=== PATIENT | female | born 1940 | race Caucasian/White ===

== ENCOUNTER 2017-01-11 22:46 | Emergency (ER) | payer MEDICARE, BC ==
[2017-01-12] MEDS ORDERED: PREDNISONE 20 MG TABLET PO ONE (03:01)
--- NOTE | 2017-01-12 03:03 | ER Document Report ---
ED General - General Chief Complaint: Back Pain Stated Complaint: BACK PAIN Time seen by provider: 02:58 Mode of Arrival: Ambulatory Information source: Patient Notes: 76-year-old female with 5 day history of pain and low back after lifting a toddler. She reports symptoms first began suddenly and felt like cramping pain in the lower back bilaterally over the course of the next 2 days localized to the left SI area. She reports straightening her legs produces pain in that area but does not produce any radicular type symptoms. She denies fever, chills , nausea, vomiting, cough, shortness breath, chest pain, abdominal pain, dysuria , urinary fecal incontinence, or numbness weakness to any extremity. Patient reports the low back pain does not radiate down her legs or to her abdomen Physical Exam: General: Alert, appears well. HEENT: Normocephalic. Atraumatic. PERRLA. Extraocular movements intact. Oropharynx clear. Neck: Supple. Non-tender. Respiratory: No respiratory distress. Clear and equal breath sounds bilaterally. Cardiovascular: Regular rate and rhythm. Abdominal: Normal Inspection. Soft, non-tender. No distension. Normal Bowel Sounds. Ostomy site appears healthy Back: Tender to palpation in the upper left SI area. This localizes it reproduces patient's pain. No lesions noted this area. Remainder back is nontender to palpation. Extremities all warm to plus pulses of cyanosis no edema straight leg raise bilaterally produces low back pain but no radicular symptoms. Neurological: Speech clear mentation normal project coordinator strength 5 out of 5 equal both upper extremities motor function 5 out of 5 equal both lower extremities Psychological: Normal affect. Normal Mood. Skin: Warm. Dry. Normal color. TRAVEL OUTSIDE OF THE [place] IN LAST 30 DAYS: No - Related Data Allergies/Adverse Reactions: latex [Latex] Allergy (Mild, Verified 08/05/13 15:41) ITCHY RASH diphenhydramine HCl [From Benadryl] Adverse Reaction (Verified 08/05/13 15:41) DECREASES HEART RATE Past Medical History - Social History Smoking Status: Current Every Day Smoker Chew tobacco use (# tins/day): No Frequency of alcohol use: None Drug Abuse: None Family History: Hypertension Patient has suicidal ideation: No Patient has homicidal ideation: No - Past Medical History Cardiac Medical History: Reports: Hx Atrial Fibrillation, Hx Hypertension Denies: Hx Heart Attack Pulmonary Medical History: Denies: Hx Asthma, Hx Tuberculosis Neurological Medical History: Denies: Hx Cerebrovascular Accident, Hx Seizures Renal/ Medical History: Denies: Hx Peritoneal Dialysis GI Medical History: Denies: Hx Hepatitis, Hx Hiatal Hernia, Hx Ulcer Infectious Medical History: Denies: Hx Hepatitis Past Surgical History: Reports: Hx Bowel Surgery - bowel resection, Hx Cholecystectomy. Denies: Hx Hysterectomy, Hx Mastectomy, Hx Open Heart Surgery , Hx Pacemaker - Immunizations Hx Diphtheria, Pertussis, Tetanus Vaccination: Yes Hx Pneumococcal Vaccination: 08/06/13 Review of Systems - Review of Systems Constitutional: denies: Chills, Fever EENT: denies: Ear pain, Throat pain Cardiovascular: denies: Chest pain, Dyspnea, Syncope Respiratory: denies: Cough, Short of breath Gastrointestinal: denies: Abdominal pain, Diarrhea, Nausea, Vomiting Genitourinary: denies: Burning, Dysuria Female Genitourinary: denies: Musculoskeletal: See HPI Skin: denies: Rash Hematologic/Lymphatic: denies: Swollen glands Neurological/Psychological: denies: Weakness, Numbness Physical Exam - Vital signs Vitals: Temp Pulse Resp BP Pulse Ox 97.9 F 71 20 156/76 H 95 01/11/17 23:04 01/11/17 23:04 01/11/17 23:04 01/11/17 23:04 01/11/17 23:04 Course - Re-evaluation Re-evalutation: 01/12/17 03:00 Patient presentation consistent with mechanical low back pain. We placed a steroid Dosepak and she reports dose pills that she is oriented been taking have not helped. She'll follow with her physician Dr. Beckham's next week for recheck or return to emergency department for further problems - Vital Signs Vital signs: Temp Pulse Resp BP Pulse Ox 97.9 F 71 20 156/76 H 95 01/11/17 23:04 01/11/17 23:04 01/11/17 23:04 01/11/17 23:04 01/11/17 23:04 Discharge - Discharge Clinical Impression: Back pain Qualifiers: Back pain location: low back pain Chronicity: acute Back pain laterality: left Sciatica presence: without sciatica Qualified Code(s): M54.5 - Low back pain Condition: Stable Disposition: HOME, SELF-CARE Additional Instructions: Low Back Pain Three out of every four people will have an episode of disabling back pain during their lifetime. Most commonly the pain is due to straining of the muscles and ligaments in the low back. Usual treatment includes: (1) Rest on a firm surface. Avoid lying on your stomach. (2) Ice pack the painful area. After a few days, gentle heat may be used intermittently to relax the area, or ice packs can be continued. (3) Medication may be needed -- muscle relaxers and antiinflammatory medicines are commonly used. (4) As the back improves, exercises are prescribed to strengthen the back and abdominal muscles. Your doctor will advise you on the proper care for your back at each stage in your recovery. You may be better in a few days -- or healing may take several weeks. If new symptoms of a "herniated disc" (radiation of pain, numbness, or tingling down the back of the leg or weakness in the leg) occur, you should be re-examined. Further testing may be necessary. Follow-up with your physician in [place] Dr. cotter next week for recheck Prescriptions: Methylprednisolone [Medrol Dosepack (4 mg/Tab) 21 Tab/Dosepak] 4 mg PO ASDIR PRN #21 tab.ds.pk PRN Reason:
[2017-01-12 03:33] VITALS: BP 122/88
== END 2017-01-12 03:31 | disposition home or self-care (01) ==
LOC: ER 22:46
DX: M54.5 Low back pain (principal); F17.200 Nicotine dependence, unspecified, uncomplicated; I48.91 Unspecified atrial fibrillation; I10 Essential (primary) hypertension; Z91.040 Latex allergy status; Z90.49 Acquired absence of other specified parts of digestive tract
CPT/HCPCS: 99283; A9270; J7512

== ENCOUNTER 2017-04-14 15:50 | Emergency (ER) | payer MEDICARE, BC ==
[2017-04-14 15:54] VITALS: BP 126/66
--- NOTE | 2017-04-14 16:23 | ER Document Report ---
ED Oral Problem - General Chief Complaint: Toothache Stated Complaint: TOOTHACHE Time Seen by Provider: 04/14/17 16:15 Information source: Patient TRAVEL OUTSIDE OF THE [place] IN LAST 30 DAYS: No - HPI Patient complains to provider of: Jaw pain Onset: Last week Pain Level: 2 Associated symptoms: Dental decay, Toothache - Related Data Allergies/Adverse Reactions: No Known Allergies Allergy (Verified 04/14/17 15:53) Past Medical History - General Information source: Patient - Social History Smoking Status: Never Smoker Cigarette use (# per day): No Chew tobacco use (# tins/day): No Smoking Education Provided: No Family History: Hypertension Patient has suicidal ideation: No Patient has homicidal ideation: No - Past Medical History Cardiac Medical History: Reports: Hx Atrial Fibrillation, Hx Hypertension Denies: Hx Heart Attack Pulmonary Medical History: Denies: Hx Asthma, Hx Tuberculosis Neurological Medical History: Denies: Hx Cerebrovascular Accident, Hx Seizures Renal/ Medical History: Denies: Hx Peritoneal Dialysis GI Medical History: Denies: Hx Hepatitis, Hx Hiatal Hernia, Hx Ulcer Infectious Medical History: Denies: Hx Hepatitis Past Surgical History: Reports: Hx Bowel Surgery - bowel resection, Hx Cholecystectomy. Denies: Hx Hysterectomy, Hx Mastectomy, Hx Open Heart Surgery , Hx Pacemaker - Immunizations Hx Diphtheria, Pertussis, Tetanus Vaccination: Yes Hx Pneumococcal Vaccination: 08/06/13 Review of Systems - Review of Systems Constitutional: No symptoms reported EENT: No symptoms reported Cardiovascular: No symptoms reported Respiratory: No symptoms reported Gastrointestinal: No symptoms reported Genitourinary: No symptoms reported Female Genitourinary: No symptoms reported Musculoskeletal: No symptoms reported Skin: No symptoms reported Hematologic/Lymphatic: No symptoms reported Neurological/Psychological: No symptoms reported Physical Exam - Vital signs Vitals: Temp Pulse Resp BP Pulse Ox 98.1 F 70 18 126/66 H 96 04/14/17 15:53 04/14/17 15:53 04/14/17 15:53 04/14/17 15:53 04/14/17 15:53 Interpretation: Normal - General General appearance: Appears well, Alert - HEENT Head: Normocephalic, Atraumatic Eyes: Normal Pupils: PERRL Teeth diagram: 1 - severe decay Pharynx: Normal - Respiratory Respiratory status: No respiratory distress Chest status: Nontender Breath sounds: Normal Chest palpation: Normal - Cardiovascular Rhythm: Regular Heart sounds: Normal auscultation Murmur: No - Abdominal Inspection: Normal Distension: No distension Bowel sounds: Normal Tenderness: Nontender Organomegaly: No organomegaly - Back Back: Normal, Nontender - Extremities General upper extremity: Normal inspection, Nontender, Normal color, Normal ROM , Normal temperature General lower extremity: Normal inspection, Nontender, Normal color, Normal ROM , Normal temperature, Normal weight bearing. No: Alex's sign - Neurological Neuro grossly intact: Yes Cognition: Normal Orientation: AAOx4 Sterling Coma Scale Eye Opening: Spontaneous Sterling Coma Scale Verbal: Oriented Maria Luisa Coma Scale Motor: Obeys Commands Maria Luisa Coma Scale Total: 15 Speech: Normal Motor strength normal: LUE, RUE, LLE, RLE Sensory: Normal - Psychological Associated symptoms: Normal affect, Normal mood - Skin Skin Temperature: Warm Skin Moisture: Dry Skin Color: Normal Course - Re-evaluation Re-evalutation: 04/14/17 16:20 7-year-old female presents to the emergency room today stating that she had discomfort and pain at the #16 tube medially she does have decayed to the area no abscess identified patient does have dentist and will be following up Sunday in the office. - Vital Signs Vital signs: Temp Pulse Resp BP Pulse Ox 98.1 F 70 18 126/66 H 96 04/14/17 15:53 04/14/17 15:53 04/14/17 15:53 04/14/17 15:53 04/14/17 15:53 Discharge - Discharge Clinical Impression: Toothache Disposition: HOME, SELF-CARE Instructions: Oral Narcotic Medication ([facility]), Toothache ([facility]) Additional Instructions: Toothache Your pain is due to dental decay. The tooth must be repaired in order for you to feel better. You will, therefore, be referred to a dentist. Severe swelling or drainage around a tooth usually means a deep dental abscess. This also requires evaluation and treatment by the dentist, but antibiotics may be prescribed while awaiting dental treatment. You should be rechecked immediately if you develop major swelling of the face, increasing pain, a lump in the jaw or gums, headache, or fever. Prescriptions: Naproxen Sodium [Naproxen Sodium ER] 500 mg PO Q12 PRN #20 tablet.sa PRN Reason: Penicillin V Potassium [Penicillin Vk 500 mg Tablet] 500 mg PO BID #20 tablet Tramadol HCl [Ultram] 50 mg PO QID PRN #20 tablet PRN Reason:
== END 2017-04-14 16:48 | disposition home or self-care (01) ==
LOC: ER 15:50
DX: K08.9 Disorder of teeth and supporting structures, unspecified (principal); R68.84 Jaw pain; I48.91 Unspecified atrial fibrillation; I10 Essential (primary) hypertension; Z90.49 Acquired absence of other specified parts of digestive tract
CPT/HCPCS: 99282

== ENCOUNTER → 2017-11-20 | Outpatient (CLI) | payer MEDICARE, BC ==
[2017-11-20 13:08] LABS: ABSOLUTE EOSINOPHILS # (AUTO) 0.2 10^3/uL (0.0-0.6); ABSOLUTE LYMPHOCYTES (AUTO) 1.6 10^3/uL (0.5-4.7); ABSOLUTE MONOCYTES (AUTO) 0.3 10^3/uL (0.1-1.4); ABSOLUTE NEUT (AUTO) 2.4 10^3/uL (1.7-8.2); BASOPHILS % (AUTO) 0.7 % (0-2); EOSINOPHILS % (AUTO) 5.4 % (0-6); HEMATOCRIT 36.8 % (36.0-47.0); HEMOGLOBIN 12.5 g/dL (12.0-15.5); MEAN CORPUSCULAR HEMOGLOBIN 32.5 pg (27.0-33.4); MEAN CORPUSCULAR HGB CONC 34.1 g/dL (32.0-36.0); MEAN CORPUSCULAR VOLUME 96 fl (80-97); MONOCYTES % (AUTO) 6.4 % (3-13); PLATELET COUNT 114 10^3/uL (150-450); RED BLOOD COUNT 3.85 10^6/uL (3.72-5.28); RED CELL DISTRIBUTION WIDTH 13.9 % (11.5-14.0); SEGMENTED NEUTROPHILS % (AUTO) 52.5 % (42-78); TOTAL CELLS COUNTED % (AUTO) 100 %; WHITE BLOOD COUNT 4.5 10^3/uL (4.0-10.5)
[2017-11-20 13:31] LABS: ALANINE AMINOTRANSFERASE 27 U/L (9-52); ALBUMIN 3.7 g/dL (3.5-5.0); ALKALINE PHOSPHATASE 89 U/L (38-126); ANION GAP 10 (5-19); ASPARTATE AMINO TRANSFERASE 24 U/L (14-36); BILIRUBIN,DIRECT 0.2 mg/dL (0.0-0.4); BILIRUBIN,TOTAL 0.6 mg/dL (0.2-1.3); BLOOD UREA NITROGEN 20 mg/dL (7-20); CALCIUM 9.5 mg/dL (8.4-10.2); CARBON DIOXIDE 26 mmol/L (22-30); CHLORIDE 106 mmol/L (98-107); GLUCOSE 86 mg/dL (75-110); POTASSIUM 4.1 mmol/L (3.6-5.0); SODIUM 141.5 mmol/L (137-145)
== END ==
LOC: OD 12:22
PROVIDERS: ATTEND Physician Assistant
DX: Z11.2 Encounter for screening for other bacterial diseases (principal); I10 Essential (primary) hypertension
CPT/HCPCS: 36415; 80053; 85025; 87070

== ENCOUNTER → 2018-02-19 | Outpatient (CLI) | payer MEDICARE, BC ==
[2018-02-19 14:40] LABS: HEMATOCRIT 25.7 % (36.0-47.0); HEMOGLOBIN 9.1 g/dL (12.0-15.5); MEAN CORPUSCULAR HEMOGLOBIN 33.4 pg (27.0-33.4); MEAN CORPUSCULAR HGB CONC 35.4 g/dL (32.0-36.0); MEAN CORPUSCULAR VOLUME 94 fl (80-97); PLATELET COUNT 139 10^3/uL (150-450); RED BLOOD COUNT 2.73 10^6/uL (3.72-5.28); RED CELL DISTRIBUTION WIDTH 14.5 % (11.5-14.0)
[2018-02-19 14:51] LABS: ANION GAP 9 (5-19); BLOOD UREA NITROGEN 41 mg/dL (7-20); CALCIUM 9.3 mg/dL (8.4-10.2); CARBON DIOXIDE 21 mmol/L (22-30); CHLORIDE 111 mmol/L (98-107); GLUCOSE 94 mg/dL (75-110); IRON(TIBC) 113.7 ug/dL (37-170); POTASSIUM 4.2 mmol/L (3.6-5.0); SODIUM 141.4 mmol/L (137-145)
[2018-02-19 15:15] LABS: APPEARANCE,URINE CLEAR; BILIRUBIN,URINE NEGATIVE (NEGATIVE); COLOR,URINE YELLOW; GLUCOSE, URINE NEGATIVE (NEGATIVE); KETONES,URINE NEGATIVE (NEGATIVE); LEUKOCYTE ESTERASE,URINE NEGATIVE (NEGATIVE); NITRITE,URINE NEGATIVE (NEGATIVE); PROTEIN,URINE NEGATIVE (NEGATIVE); URINE SPECIFIC GRAVITY 1.018; UROBILINOGEN,URINE NEGATIVE mg/dL (<2.0)
== END ==
LOC: OD 13:23
PROVIDERS: ATTEND Internal Medicine Nephrology
DX: N18.3 Chronic kidney disease, stage 3 (moderate) (principal); D64.9 Anemia, unspecified
CPT/HCPCS: 36415; 80048; 81001; 82728; 83540; 83550; 83735; 84443; 85027

== ENCOUNTER → 2018-04-04 | Outpatient (CLI) | payer MEDICARE, BC ==
[2018-04-04 12:30] LABS: HEMATOCRIT 32.2 % (36.0-47.0); MEAN CORPUSCULAR HEMOGLOBIN 33.5 pg (27.0-33.4); MEAN CORPUSCULAR HGB CONC 34.1 g/dL (32.0-36.0); MEAN CORPUSCULAR VOLUME 98 fl (80-97); PLATELET COUNT 133 10^3/uL (150-450); RED BLOOD COUNT 3.29 10^6/uL (3.72-5.28); RED CELL DISTRIBUTION WIDTH 13.4 % (11.5-14.0); WHITE BLOOD COUNT 3.7 10^3/uL (4.0-10.5)
[2018-04-04 13:00] LABS: ANION GAP 11 (5-19); BLOOD UREA NITROGEN 20 mg/dL (7-20); CALCIUM 9.8 mg/dL (8.4-10.2); CARBON DIOXIDE 25 mmol/L (22-30); CHLORIDE 106 mmol/L (98-107); GLUCOSE 99 mg/dL (75-110); POTASSIUM 4.6 mmol/L (3.6-5.0); SODIUM 142.3 mmol/L (137-145)
== END ==
LOC: OD 11:48
PROVIDERS: ATTEND Internal Medicine Nephrology
DX: I12.9 Hypertensive chronic kidney disease with stage 1 through stage 4 chronic kidney disease, or unspecified chronic kidney disease (principal); N18.3 Chronic kidney disease, stage 3 (moderate); D64.9 Anemia, unspecified
CPT/HCPCS: 36415; 80048; 85027

== ENCOUNTER → 2018-09-23 | Outpatient (CLI) | payer MEDICARE, BC ==
[2018-09-23 12:18] LABS: IRON(TIBC) 74.7 ug/dL (37-170)
== END ==
LOC: OD 11:22
PROVIDERS: ATTEND Internal Medicine Nephrology
DX: N18.3 Chronic kidney disease, stage 3 (moderate) (principal); D64.9 Anemia, unspecified
CPT/HCPCS: 36415; 82728; 83540; 83550

== ENCOUNTER → 2019-03-03 | Outpatient (CLI) | payer MEDICARE, BC ==
[2019-03-03 11:51] LABS: IRON(TIBC) 62.9 ug/dL (37-170)
[2019-03-03 12:58] LABS: FOLATE > 20.00 ng/mL (>2.76)
== END ==
LOC: OD 10:37
PROVIDERS: ATTEND Internal Medicine Nephrology
DX: N18.9 Chronic kidney disease, unspecified (principal); D63.1 Anemia in chronic kidney disease
CPT/HCPCS: 36415; 82746; 83540; 83550

== ENCOUNTER → 2019-04-15 | Outpatient (CLI) | payer MEDICARE, BC ==
[2019-04-15 16:47] LABS: HEMATOCRIT 28.3 % (36.0-47.0); HEMOGLOBIN 9.7 g/dL (12.0-15.5); MEAN CORPUSCULAR HEMOGLOBIN 33.2 pg (27.0-33.4); MEAN CORPUSCULAR HGB CONC 34.2 g/dL (32.0-36.0); MEAN CORPUSCULAR VOLUME 97 fl (80-97); PLATELET COUNT 127 10^3/uL (150-450); RED BLOOD COUNT 2.91 10^6/uL (3.72-5.28); RED CELL DISTRIBUTION WIDTH 13.8 % (11.5-14.0); WHITE BLOOD COUNT 4.2 10^3/uL (4.0-10.5)
[2019-04-15 17:02] LABS: APPEARANCE,URINE CLEAR; BILIRUBIN,URINE NEGATIVE (NEGATIVE); COLOR,URINE YELLOW; GLUCOSE, URINE NEGATIVE (NEGATIVE); KETONES,URINE NEGATIVE (NEGATIVE); LEUKOCYTE ESTERASE,URINE NEGATIVE (NEGATIVE); NITRITE,URINE NEGATIVE (NEGATIVE); PROTEIN,URINE NEGATIVE (NEGATIVE); URINE SPECIFIC GRAVITY 1.017; UROBILINOGEN,URINE NEGATIVE mg/dL (<2.0)
[2019-04-15 17:18] LABS: ANION GAP 11 (5-19); BLOOD UREA NITROGEN 20 mg/dL (7-20); CALCIUM 8.7 mg/dL (8.4-10.2); CARBON DIOXIDE 25 mmol/L (22-30); CHLORIDE 103 mmol/L (98-107); GLUCOSE 96 mg/dL (75-110)
== END ==
LOC: OD 14:39
PROVIDERS: ATTEND Internal Medicine Nephrology
DX: I12.9 Hypertensive chronic kidney disease with stage 1 through stage 4 chronic kidney disease, or unspecified chronic kidney disease (principal); N18.3 Chronic kidney disease, stage 3 (moderate); D63.1 Anemia in chronic kidney disease
CPT/HCPCS: 36415; 80048; 81001; 85027

== ENCOUNTER 2019-09-03 05:28 | Inpatient (IN) | payer MEDICARE, BC ==
[2019-09-03] MEDS ORDERED: ASPIRIN 81 MG TABLET, CHEWABLE PO ONE (05:50)
[2019-09-03 06:13] LABS: ABSOLUTE BASOPHILS # (AUTO) 0.1 10^3/uL (0.0-0.2); ABSOLUTE LYMPHOCYTES (AUTO) 1.3 10^3/uL (0.5-4.7); ABSOLUTE MONOCYTES (AUTO) 0.6 10^3/uL (0.1-1.4); ABSOLUTE NEUT (AUTO) 7.6 10^3/uL (1.7-8.2); BASOPHILS % (AUTO) 1.2 % (0-2); EOSINOPHILS % (AUTO) 0.3 % (0-6); HEMATOCRIT 33.1 % (36.0-47.0); HEMOGLOBIN 11.1 g/dL (12.0-15.5); LYMPHOCYTES % (AUTO) 13.9 % (13-45); MEAN CORPUSCULAR HEMOGLOBIN 32.4 pg (27.0-33.4); MEAN CORPUSCULAR HGB CONC 33.7 g/dL (32.0-36.0); MEAN CORPUSCULAR VOLUME 96 fl (80-97); MONOCYTES % (AUTO) 5.8 % (3-13); PLATELET COUNT 158 10^3/uL (150-450); RED BLOOD COUNT 3.44 10^6/uL (3.72-5.28); SEGMENTED NEUTROPHILS % (AUTO) 78.8 % (42-78); TOTAL CELLS COUNTED % (AUTO) 100 %; WHITE BLOOD COUNT 9.6 10^3/uL (4.0-10.5)
--- NOTE | 2019-09-03 06:30 | ER Document Report ---
ED General - General Chief Complaint: Chest Pain Stated Complaint: CHEST PAIN Time Seen by Provider: 09/03/19 05:57 Primary Care Provider: JADEN KITCHEN MD [Primary Care Provider] - Follow up as needed TRAVEL OUTSIDE OF THE [place] IN LAST 30 DAYS: No - HPI Notes: Patient is a 79-year-old female that presents to the emergency department for chief complaint of chest pain and cough. Patient reports she has been fighting a cough for the last 2 weeks. She states that it has been getting progressively worse. She reports her primary care doctor has her on a allergy medication and told her she was allergic to mold. Patient states that the cough is now productive. She came in tonight because at 11 PM last night she began having a left-sided chest pain. She describes it as sharp and worse with breathing. She has not taken any medication at home for pain. Patient is a daily tobacco user and denies any home breathing treatments or oxygen. She denies known history of COPD or CAD. Patient reports no fevers but has been feeling malaise and chills. Past Medical History: Hypertension, seasonal allergies, gout Past Surgical History: Reviewed in chart Social History: Daily tobacco. Denies alcohol use. Lives at home independently Family History: Reviewed and noncontributory for presenting illness Allergies: Reviewed, see documented allergy list. REVIEW OF SYSTEMS: CONSTITUTIONAL : No fever chills No diaphoresis recent illness EENT: No vision changes No congestion No sore throat CARDIOVASCULAR: chest pain No palpitations RESPIRATORY: shortness of breath cough difficulty breathing GASTROINTESTINAL: No abdominal pain No nausea No vomiting No diarrhea GENITOURINARY: No dysuria No hematuria No difficulty urinating MUSCULOSKELETAL: No back pain No leg pain No arm pain SKIN: No rashes No lesions LYMPHATIC: No swollen, enlarged glands. NEUROLOGICAL: No lightheadedness No headache No weakness No paresthesias PSYCHIATRIC: No anxiety No depression PHYSICAL EXAMINATION: Vital signs reviewed, nursing noted reviewed. GENERAL: Ill-appearing, well-nourished and in no acute distress. HEAD: Atraumatic, normocephalic. EYES: Eyes appear normal, extraocular movements intact, sclera anicteric, conjunctiva are normal. ENT: nares patent, oropharynx clear without exudates. Moist mucous membranes. NECK: Normal range of motion, supple without lymphadenopathy LUNGS: Expiratory wheezing to auscultation bilaterally. Tachypneic without accessory muscle use or retractions. HEART: Regular rate and rhythm without murmurs ABDOMEN: Soft, nontender, normoactive bowel sounds. No rebound, guarding, or rigidity. No masses appreciated. EXTREMITIES: Nontender, good range of motion, no pitting or edema. NEUROLOGICAL: No focal neurological deficits. Moves all extremities spontaneously Motor and sensory grossly intact on exam. PSYCH: Normal mood, normal affect. SKIN: Warm, Dry, normal turgor, no rashes or lesions noted on exposed skin - Related Data Allergies/Adverse Reactions: No Known Allergies Allergy (Verified 04/14/17 15:53) Past Medical History - Social History Smoking Status: Never Smoker Frequency of alcohol use: None Family History: Hypertension Patient has suicidal ideation: No Patient has homicidal ideation: No - Past Medical History Cardiac Medical History: Reports: Hx Atrial Fibrillation, Hx Hypertension Denies: Hx Heart Attack Pulmonary Medical History: Denies: Hx Asthma, Hx Tuberculosis Neurological Medical History: Denies: Hx Cerebrovascular Accident, Hx Seizures Renal/ Medical History: Denies: Hx Peritoneal Dialysis GI Medical History: Denies: Hx Hepatitis, Hx Hiatal Hernia, Hx Ulcer Infectious Medical History: Denies: Hx Hepatitis Past Surgical History: Reports: Hx Bowel Surgery - bowel resection, Hx Cholecystectomy. Denies: Hx Hysterectomy, Hx Mastectomy, Hx Open Heart Surgery, Hx Pacemaker - Immunizations Hx Diphtheria, Pertussis, Tetanus Vaccination: Yes Hx Pneumococcal Vaccination: 08/06/13 Physical Exam - Vital signs Vitals: Pulse Ox 90 L 09/03/19 05:40 Course - Re-evaluation Re-evalutation: 09/03/19 06:30 Vitals reviewed. Nursing notes reviewed. Patient has wheezing to auscultation bilaterally and is ill-appearing. She is a daily tobacco user. Patient given DuoNeb and albuterol for symptomatic management. She is complaining of chest pain and did receive aspirin in triage. Patient's EKG shows no ischemic changes or STEMI. Patient's O2 was low but has improved on 2 L nasal cannula. 09/03/19 07:15 Patient's chest x-ray shows bibasilar pneumonia. She will be started on Levaquin. Patient's troponin came back is 0.023, her repeat EKG is unchanged. The slight bump in troponin may be secondary to her hypoxia at presentation. She is currently chest pain-free. Patient will be admitted to the hospital for further medical management. Care discussed with admitting provider. Laboratory 09/03/19 09/03/19 09/03/19 05:45 05:45 05:45 WBC 9.6 RBC 3.44 L Hgb 11.1 L Hct 33.1 L MCV 96 MCH 32.4 MCHC 33.7 RDW 15.0 H Plt Count 158 Lymph % (Auto) 13.9 [place] % (Auto) 5.8 Eos % (Auto) 0.3 Baso % (Auto) 1.2 Absolute Neuts (auto) 7.6 Absolute Lymphs (auto) 1.3 Absolute Monos (auto) 0.6 Absolute Eos (auto) 0.0 Absolute Basos (auto) 0.1 Seg Neutrophils % 78.8 H Sodium 135.0 L Potassium 3.9 Chloride 99 Carbon Dioxide 29 Anion Gap 7 BUN 26 H Creatinine 1.25 Est GFR ( Amer) 50 L Est GFR (MDRD) Non-Af 41 L Glucose 105 Calcium 9.8 Total Bilirubin 0.8 Direct Bilirubin 0.1 Neonat Total Bilirubin Not Reportable Neonat Direct Bilirubin Not Reportable Neonat Indirect Bili Not Reportable AST 28 ALT 30 Alkaline Phosphatase 84 Troponin I 0.023 Total Protein 6.4 Albumin 3.7 Chest X-Ray 09/03/19 05:58 IMPRESSION: Developing bilateral lower lung opacities favored to represent developing pneumonia, consider aspiration. 09/03/19 07:33 - Vital Signs Vital signs: Temp Pulse Resp BP Pulse Ox 99.6 F 27 H 156/76 H 96 09/03/19 05:57 09/03/19 06:02 09/03/19 06:02 09/03/19 06:02 - Laboratory Result Diagrams: 09/03/19 05:45 09/03/19 05:45 Laboratory results interpreted by me: 09/03/19 09/03/19 05:45 05:45 RBC 3.44 L Hgb 11.1 L Hct 33.1 L RDW 15.0 H Seg Neutrophils % 78.8 H Sodium 135.0 L BUN 26 H Est GFR ( Amer) 50 L Est GFR (MDRD) Non-Af 41 L - EKG Interpretation by Me Additional EKG results interpreted by me: 09/03/19 07:14 Interpreted by myself 0536: Normal sinus rhythm, rate 83, normal axis, no STEMI, no ectopy 0702: Normal sinus rhythm, rate 78, normal axis, no STEMI, no ectopy, no change from initial EKG Discharge - Discharge Clinical Impression: Hyponatremia Pneumonia Qualifiers: Pneumonia type: due to unspecified organism Laterality: bilateral Lung location: lower lobe of lung Qualified Code(s): J18.1 - Lobar pneumonia, unspecified organism Chest pain Qualifiers: Chest pain type: unspecified Qualified Code(s): R07.9 - Chest pain, unspecified Condition: Stable Disposition: ADMITTED INPATIENT Admitting Provider: ROSINA Borjas Unit Admitted: Telemetry Referrals: JADEN KITCHEN MD [Primary Care Provider] - Follow up as needed
[2019-09-03 06:31] LABS: ALBUMIN 3.7 g/dL (3.5-5.0); ALKALINE PHOSPHATASE 84 U/L (38-126); ANION GAP 7 (5-19); ASPARTATE AMINO TRANSFERASE 28 U/L (14-36); BILIRUBIN,DIRECT 0.1 mg/dL (0.0-0.4); BILIRUBIN,TOTAL 0.8 mg/dL (0.2-1.3); BLOOD UREA NITROGEN 26 mg/dL (7-20); CALCIUM 9.8 mg/dL (8.4-10.2); CARBON DIOXIDE 29 mmol/L (22-30); CHLORIDE 99 mmol/L (98-107); GLUCOSE 105 mg/dL (75-110); POTASSIUM 3.9 mmol/L (3.6-5.0); TOTAL PROTEIN 6.4 g/dL (6.3-8.2)
--- NOTE | 2019-09-03 06:38 | RADIOLOGY REPORT (SQ) ---
Chest single view on 09/03/2019 at 6:18 AM CLINICAL INDICATION: Chest pain COMPARISON: 08/05/2013 FINDINGS: There are developing bilateral lower lung opacities consistent with developing areas of atelectasis and/or pneumonia. Implantable cardiac recorder device projects over the left lower chest. Vascular calcification is noted in the aorta. Cardiac, hilar and mediastinal contours are within normal limits. No bony abnormality is noted. IMPRESSION: Developing bilateral lower lung opacities favored to represent developing pneumonia, consider aspiration.
[2019-09-03] MEDS ORDERED: LEVOFLOXACIN 750 MG/D5W RTU 750 MG/150 ML RTUPB IV ONE (06:57)
[2019-09-03] MEDS ORDERED: ONDANSETRON HCL INJ/PF 4 MG/2 ML SDV IV ONE (07:18)
[2019-09-03] MEDS ORDERED: ONDANSETRON HCL INJ/PF 4 MG/2 ML SDV IV PRN (07:44)
[2019-09-03] MEDS ORDERED: ZOLPIDEM TARTRATE 5 MG TABLET PO PRN (07:44)
[2019-09-03] MEDS ORDERED: OXYCODONE-ACETAMINOPHEN 5-325 MG TABLET PO PRN (07:44)
[2019-09-03] MEDS ORDERED: MAG HYDROX/AL HYDROX/SIMETH SUSP 30 ML UDCUP PO PRN (07:44)
[2019-09-03] MEDS ORDERED: ACETAMINOPHEN 325 MG TABLET PO PRN (07:44)
[2019-09-03] MEDS ORDERED: AZITHROMYCIN 250 MG TABLET PO ONE (07:51)
--- NOTE | 2019-09-03 08:00 | PDOC H&P ---
History of Present Illness Admission Date/PCP: 09/03/2019 JADEN KITCHEN MD Patient complains of: Shortness of breath, chest pain History of Present Illness: KELSIE ESTEBAN is a 79 year old female who presents to the ER with complaint of chest pain and cough. Patient states she is been fighting cough for 2 weeks states that it has been progressively worsening. Reports that her primary care practitioner placed her on allergy medication secondary to allergic tendencies toward mold. Patient states left-sided chest pain is sharp in nature especially with movement and cough. She has had no treatment prior to arrival. All activities been aggravating factor. Patient continues to smoke 3 cigarettes a day. Past Medical History Cardiac Medical History: Reports: Atrial Fibrillation, Hypertension Denies: Myocardial Infarction Pulmonary Medical History: Denies: Asthma, Tuberculosis Neurological Medical History: Denies: Seizures GI Medical History: Denies: Hepatitis, Hiatal Hernia Hematology: Denies: Anemia, Sickle Cell Disease Past Surgical History Past Surgical History: Reports: Cholecystectomy Denies: Amputation, Hysterectomy, Mastectomy, Pacemaker Social History Information Source: Patient Lives with: Family Smoking Status: Current Every Day Smoker Cigarettes Packs Per Day: 3 Frequency of Alcohol Use: Occasional Hx Recreational Drug Use: No Drugs: None Hx Prescription Drug Abuse: No - Advance Directive Resuscitation Status: Full Code Family History Family History: Hypertension, Other - Congestive heart failure Parental Family History Reviewed: Yes Children Family History Reviewed: Yes Sibling(s) Family History Reviewed.: Yes Medication/Allergy Home Medications: Aspirin [Aspirin 325 mg Tablet] 325 mg PO DAILY #0 tablet 08/06/13 Calcium Carbonate/Vitamin D3 [Calcium 600-Vit D3 200 Tablet] 1 each PO DAILY #0 tablet 08/06/13 Fiber [Fiber Choice] 1 each PO DAILY #0 tab.chew 08/06/13 Flecainide Acetate [Tambocor] 100 mg PO BID #0 tablet 08/06/13 Lansoprazole [Prevacid 30 mg Odt Tablet] 30 mg PO ACBRKFST #0 tab.rap.dr 08/06/13 Medroxyprogesterone Acet [Provera 2.5 mg Tablet] 2.5 mg PO DAILY #0 tablet 08/06/13 Multivitamin [Tab-A-Sukumar (Multiple Vitamin) Tablet] 1 tab PO DAILY #0 tablet 08/06/13 Vitamin O62-Xloggbpbk Factor [Martinic] 1 each PO DAILY #0 capsule 08/06/13 Methylprednisolone [Medrol Dosepack (4 mg/Tab) 21 Tab/Dosepak] 4 mg PO ASDIR PRN #21 tab.ds.pk 01/12/17 Naproxen Sodium [Naproxen Sodium ER] 500 mg PO Q12 PRN #20 tablet.sa 04/14/17 Mesalamine [Apriso ER 0.375 gm Cap.sr] 0.375 gm PO DAILY 09/03/19 Metoprolol Tartrate [Lopressor 50 mg Tablet] 25 mg PO BID 09/03/19 Allergies/Adverse Reactions: No Known Allergies Allergy (Verified 04/14/17 15:53) Review of Systems Constitutional: ABSENT: chills, fever(s), headache(s), weight gain, weight loss Eyes: ABSENT: visual disturbances Ears: ABSENT: hearing changes Cardiovascular: PRESENT: chest pain. ABSENT: dyspnea on exertion, edema, orthropnea, palpitations Respiratory: PRESENT: cough. ABSENT: hemoptysis Gastrointestinal: ABSENT: abdominal pain, constipation, diarrhea, hematemesis, hematochezia, nausea, vomiting Genitourinary: ABSENT: dysuria, hematuria Musculoskeletal: ABSENT: joint swelling Integumentary: ABSENT: rash, wounds Neurological: ABSENT: abnormal gait, abnormal speech, confusion, dizziness, focal weakness, syncope Psychiatric: ABSENT: anxiety, depression, homidical ideation, suicidal ideation Endocrine: ABSENT: cold intolerance, heat intolerance, polydipsia, polyuria Hematologic/Lymphatic: ABSENT: easy bleeding, easy bruising Physical Exam Vital Signs: Temp Pulse Resp BP Pulse Ox 99.6 F 27 H 156/76 H 96 09/03/19 05:57 09/03/19 06:02 09/03/19 06:02 09/03/19 06:02 Intake & Output 09/02/19 09/03/19 09/04/19 06:59 06:59 06:59 Weight 65 kg General appearance: PRESENT: no acute distress, well-developed, well-nourished Head exam: PRESENT: atraumatic, normocephalic Eye exam: PRESENT: conjunctiva pink, EOMI, PERRLA. ABSENT: scleral icterus Ear exam: PRESENT: normal external ear exam Mouth exam: PRESENT: moist, tongue midline Neck exam: ABSENT: carotid bruit, JVD, lymphadenopathy, thyromegaly Respiratory exam: PRESENT: clear to auscultation lissette. ABSENT: rales, rhonchi, wheezes Cardiovascular exam: PRESENT: RRR. ABSENT: diastolic murmur, rubs, systolic murmur Pulses: PRESENT: normal dorsalis pedis pul Vascular exam: PRESENT: normal capillary refill GI/Abdominal exam: PRESENT: normal bowel sounds, soft. ABSENT: distended, guarding, mass, organolmegaly, rebound, tenderness Rectal exam: PRESENT: deferred Extremities exam: PRESENT: full ROM. ABSENT: calf tenderness, clubbing, pedal edema Neurological exam: PRESENT: alert, awake, oriented to person, oriented to place, oriented to time, oriented to situation, CN II-XII grossly intact. ABSENT: motor sensory deficit Psychiatric exam: PRESENT: appropriate affect, normal mood. ABSENT: homicidal ideation, suicidal ideation Skin exam: PRESENT: dry, intact, warm. ABSENT: cyanosis, rash Results Laboratory Results: 09/03/19 05:45 09/03/19 05:45 09/03/19 09/03/19 05:45 05:45 WBC 9.6 RBC 3.44 L Hgb 11.1 L Hct 33.1 L MCV 96 MCH 32.4 MCHC 33.7 RDW 15.0 H Plt Count 158 Seg Neutrophils % 78.8 H Sodium 135.0 L Potassium 3.9 Chloride 99 Carbon Dioxide 29 Anion Gap 7 BUN 26 H Creatinine 1.25 Est GFR ( Amer) 50 L Glucose 105 Calcium 9.8 Total Bilirubin 0.8 AST 28 Alkaline Phosphatase 84 Total Protein 6.4 Albumin 3.7 09/03/19 05:45 Troponin I 0.023 Impressions: Chest X-Ray 09/03/19 05:58 IMPRESSION: Developing bilateral lower lung opacities favored to represent developing pneumonia, consider aspiration. Assessment and Plan - Diagnosis (1) Community acquired pneumonia Is this a current diagnosis for this admission?: Yes (2) Chest pain Qualifiers: Chest pain type: unspecified Qualified Code(s): R07.9 - Chest pain, unspecified Is this a current diagnosis for this admission?: Yes (3) Hypertension Is this a current diagnosis for this admission?: Yes (4) Seasonal allergies Is this a current diagnosis for this admission?: Yes - Plan Summary Summary: 09/03/2019- Community acquired pneumonia-Rocephin 1 g IV daily, azithromycin 500 mg p.o. daily. Await culture for offending organism. Supportive measures as needed including oxygen. Chest pain-most likely costochondral in nature. Patient does state aggravation with movement and breathing. Percocet 5 mg / 325 mg 1 p.o. every 4 hours as needed. Hypertension-await medication reconciliation and continue medication Seasonal allergies-continue home medications - Time Time Spent with patient: 35 or more minutes - Inpatient Certification Based on my medical assessment, after consideration of the patient's comorbidities, presenting symptoms, or acuity I expect that the services needed warrant INPATIENT care.: Yes I certify that my determination is in accordance with my understanding of Medicare's requirements for reasonable and necessary INPATIENT services [42 CFR 412.3e].: Yes Medical Necessity: Other - IV ABX
[2019-09-03] MEDS: FLECAINIDE ACETATE 100 MG TABLET PO SCH ×2 (09:24→21:07)
[2019-09-03] MEDS: CEFTRIAXONE 1 GM/D5W RTU 1 GM/50 ML RTUPB IV SCH (09:24)
[2019-09-03] MEDS: METOPROLOL TARTRATE 50 MG TABLET PO SCH ×2 (09:24→21:15)
[2019-09-03] MEDS ORDERED: MESALAMINE 0.375 GM PO SCH (10:00)
[2019-09-03] MEDS ORDERED: FLECAINIDE ACETATE 100 MG PO SCH (10:00)
[2019-09-03 10:06] LABS: ANION GAP 7 (5-19); BLOOD UREA NITROGEN 28 mg/dL (7-20); CALCIUM 9.1 mg/dL (8.4-10.2); CARBON DIOXIDE 27 mmol/L (22-30); CHLORIDE 98 mmol/L (98-107); GLUCOSE 99 mg/dL (75-110); POTASSIUM 3.9 mmol/L (3.6-5.0)
[2019-09-03] MEDS: HEPARIN SOD (PORCINE) 5,000 UNIT/ML 1 ML VIAL SUBCUT SCH ×2 (15:04→21:12)
[2019-09-03] MEDS: ALBUTEROL SULFATE 0.083% NEB 2.5 MG/3 ML AMPUL NEB PRN ×2 (15:56→20:22)
[2019-09-03] MEDS: NYSTATIN 500000 UNIT/5 ML UDCUP PO SCH (21:08)
--- NOTE | 2019-09-03 23:15 | EKG REPORT ---
SEVERITY:- BORDERLINE ECG - SINUS RHYTHM BORDERLINE T ABNORMALITIES, ANT-LAT LEADS : Confirmed by: Michelle Miles 03-Sep-2019 23:14:19
--- NOTE | 2019-09-03 23:15 | EKG REPORT ---
SEVERITY:- NORMAL ECG - SINUS RHYTHM : Confirmed by: Michelle Miles 03-Sep-2019 23:13:53
[2019-09-04] MEDS: ALBUTEROL SULFATE 0.083% NEB 2.5 MG/3 ML AMPUL NEB PRN ×2 (00:24→04:22)
[2019-09-04] MEDS: NYSTATIN 500000 UNIT/5 ML UDCUP PO SCH ×4 (00:24→17:04)
[2019-09-04] MEDS: HEPARIN SOD (PORCINE) 5,000 UNIT/ML 1 ML VIAL SUBCUT SCH ×3 (06:10→21:07)
[2019-09-04 06:23] LABS: HEMATOCRIT 29.5 % (36.0-47.0); MEAN CORPUSCULAR HEMOGLOBIN 32.5 pg (27.0-33.4); MEAN CORPUSCULAR HGB CONC 33.9 g/dL (32.0-36.0); MEAN CORPUSCULAR VOLUME 96 fl (80-97); PLATELET COUNT 126 10^3/uL (150-450); RED BLOOD COUNT 3.08 10^6/uL (3.72-5.28); RED CELL DISTRIBUTION WIDTH 15.4 % (11.5-14.0); WHITE BLOOD COUNT 8.5 10^3/uL (4.0-10.5)
[2019-09-04 06:46] LABS: ANION GAP 9 (5-19); BLOOD UREA NITROGEN 26 mg/dL (7-20); CALCIUM 8.6 mg/dL (8.4-10.2); CARBON DIOXIDE 27 mmol/L (22-30); CHLORIDE 96 mmol/L (98-107); GLUCOSE 117 mg/dL (75-110); PHOSPHORUS 4.4 mg/dL (2.5-4.5)
[2019-09-04] MEDS ORDERED: INFLUENZA QUAD (6MOS+) 2019-20 VAC 0.5 ML SYR IM ONE (08:00)
--- NOTE | 2019-09-04 08:34 | PDOC PROGRESS REPORT ---
Subjective Progress Note for:: 09/04/19 Subjective:: 09/04/2019-no complaints this a.m. Reason For Visit: COMMUNITY AQUIRED PNEUMONIA Physical Exam Vital Signs: Temp Pulse Resp BP Pulse Ox 98.8 F 74 20 113/53 L 96 09/04/19 02:00 09/04/19 04:20 09/04/19 04:20 09/04/19 02:00 09/04/19 04:20 Intake & Output 09/03/19 09/04/19 09/05/19 06:59 06:59 06:59 Intake Total 440 Balance 440 Weight 65 kg 65.3 kg General appearance: PRESENT: no acute distress, well-developed, well-nourished Neck exam: ABSENT: carotid bruit, JVD, lymphadenopathy, thyromegaly Respiratory exam: PRESENT: decreased breath sounds, rhonchi, unlabored Cardiovascular exam: PRESENT: RRR. ABSENT: diastolic murmur, rubs, systolic murmur Pulses: PRESENT: normal dorsalis pedis pul GI/Abdominal exam: PRESENT: normal bowel sounds, soft. ABSENT: distended, guarding, mass, organolmegaly, rebound, tenderness Extremities exam: PRESENT: full ROM. ABSENT: calf tenderness, clubbing, pedal edema Neurological exam: PRESENT: alert, awake, oriented to person, oriented to place, oriented to time, oriented to situation, CN II-XII grossly intact. ABSENT: motor sensory deficit Psychiatric exam: PRESENT: appropriate affect, normal mood. ABSENT: homicidal ideation, suicidal ideation Skin exam: PRESENT: dry, intact, warm. ABSENT: cyanosis, rash Results Laboratory Results: 09/04/19 05:19 09/04/19 05:19 09/03/19 09/04/19 09/04/19 09:21 05:19 05:19 WBC 8.5 RBC 3.08 L Hgb 10.0 L Hct 29.5 L MCV 96 MCH 32.5 MCHC 33.9 RDW 15.4 H Plt Count 126 L Sodium 132.1 L 132.0 L Potassium 3.9 4.0 Chloride 98 96 L Carbon Dioxide 27 27 Anion Gap 7 9 BUN 28 H 26 H Creatinine 1.21 1.42 H Est GFR ( Amer) 52 L 43 L Glucose 99 117 H Calcium 9.1 8.6 Phosphorus 4.4 Magnesium 1.7 09/03/19 09/03/19 05:45 09:21 Troponin I 0.023 0.025 Impressions: Chest X-Ray 09/03/19 05:58 IMPRESSION: Developing bilateral lower lung opacities favored to represent developing pneumonia, consider aspiration. Assessment and Plan - Diagnosis (1) Community acquired pneumonia Is this a current diagnosis for this admission?: Yes (2) Chest pain Qualifiers: Chest pain type: unspecified Qualified Code(s): R07.9 - Chest pain, un specified Is this a current diagnosis for this admission?: Yes (3) Hypertension Is this a current diagnosis for this admission?: Yes (4) Seasonal allergies Is this a current diagnosis for this admission?: Yes - Plan Summary Summary: 09/03/2019- Community acquired pneumonia-Rocephin 1 g IV daily, azithromycin 500 mg p.o. daily. Await culture for offending organism. Supportive measures as needed including oxygen. Chest pain-most likely costochondral in nature. Patient does state aggravation with movement and breathing. Percocet 5 mg / 325 mg 1 p.o. every 4 hours as needed. Hypertension-await medication reconciliation and continue medication Seasonal allergies-continue home medications 09/04/2019- Community acquired pneumonia-improved. Patient states breathing is much easier at this time. We will continue Rocephin and azithromycin. Await cultures Chest pain-most likely costochondral in nature. Improved at this time. Co ntinue PRN pain medications. Hypertension-stable improved. Continue to follow Seasonal allergies-continue home medications. Acute renal failure-mild creatinine 1.4. I will hydrate patient overnight with normal saline at 75 mL an hour repeat BMP in a.m. - Time Time Spent with patient: 15-24 minutes - Inpatient Certification Based on my medical assessment, after consideration of the patient's comorbidities, presenting symptoms, or acuity I expect that the services needed warrant INPATIENT care.: Yes I certify that my determination is in accordance with my understanding of Medicare's requirements for reasonable and necessary INPATIENT services [42 CFR 412.3e].: Yes Medical Necessity: Need For IV Fluids, Need for IV Antibiotics
[2019-09-04] MEDS: METOPROLOL TARTRATE 50 MG TABLET PO SCH ×2 (09:33→10:31)
[2019-09-04] MEDS: FLECAINIDE ACETATE 100 MG TABLET PO SCH ×3 (09:33→21:07)
[2019-09-04] MEDS: CEFTRIAXONE 1 GM/D5W RTU 1 GM/50 ML RTUPB IV SCH (09:33)
[2019-09-04] MEDS: NORMAL SALINE 1000 ML 1,000 ML IV PRN (09:33)
[2019-09-04] MEDS ORDERED: OXYCODONE-ACETAMINOPHEN 5-325 MG TABLET PO PRN (13:08)
[2019-09-04] MEDS ORDERED: ACETAMINOPHEN 325 MG TABLET PO PRN (13:08)
[2019-09-04] MEDS ORDERED: ONDANSETRON HCL INJ/PF 4 MG/2 ML SDV IV PRN (13:30)
[2019-09-04] MEDS: AZITHROMYCIN 250 MG TABLET PO SCH (14:21)
[2019-09-04] MEDS: METOPROLOL TARTRATE 25 MG TABLET PO SCH (21:07)
[2019-09-05] MEDS: NYSTATIN 500000 UNIT/5 ML UDCUP PO SCH ×4 (00:04→17:38)
[2019-09-05] MEDS: NORMAL SALINE 1000 ML 1,000 ML IV PRN ×2 (00:04→13:59)
[2019-09-05] MEDS: HEPARIN SOD (PORCINE) 5,000 UNIT/ML 1 ML VIAL SUBCUT SCH ×3 (06:05→22:00)
--- NOTE | 2019-09-05 08:51 | PDOC PROGRESS REPORT ---
Subjective Progress Note for:: 09/05/19 Subjective:: 09/04/2019-no complaints this a.m. 09/05/2019-no complaints Reason For Visit: COMMUNITY AQUIRED PNEUMONIA Physical Exam Vital Signs: Temp Pulse Resp BP Pulse Ox 36.9 F L 60 20 148/65 H 98 09/05/19 05:21 09/05/19 05:21 09/04/19 16:18 09/05/19 05:21 09/05/19 05:21 Intake & Output 09/04/19 09/05/19 09/06/19 06:59 06:59 06:59 Intake Total 440 2009 Balance 440 2009 Weight 65.3 kg 67.1 kg General appearance: PRESENT: no acute distress, well-developed, well-nourished Neck exam: ABSENT: carotid bruit, JVD, lymphadenopathy, thyromegaly Respiratory exam: PRESENT: decreased breath sounds, symmetrical, tachypnea, unlabored, wheezes Cardiovascular exam: PRESENT: RRR. ABSENT: diastolic murmur, rubs, systolic murmur Pulses: PRESENT: normal dorsalis pedis pul Vascular exam: PRESENT: normal capillary refill GI/Abdominal exam: PRESENT: normal bowel sounds, soft. ABSENT: distended, guarding, mass, organolmegaly, rebound, tenderness Extremities exam: PRESENT: full ROM. ABSENT: calf tenderness, clubbing, pedal edema Neurological exam: PRESENT: alert, awake, oriented to person, oriented to place, oriented to time, oriented to situation, CN II-XII grossly intact. ABSENT: motor sensory deficit Psychiatric exam: PRESENT: appropriate affect, normal mood. ABSENT: homicidal ideation, suicidal ideation Skin exam: PRESENT: dry, intact, warm. ABSENT: cyanosis, rash Results Laboratory Results: 09/04/19 05:19 09/04/19 05:19 09/03/19 09/03/19 05:45 09:21 Troponin I 0.023 0.025 Impressions: Chest X-Ray 09/03/19 05:58 IMPRESSION: Developing bilateral lower lung opacities favored to represent developing pneumonia, consider aspiration. Assessment and Plan - Diagnosis (1) Community acquired pneumonia Is this a current diagnosis for this admission?: Yes (2) Chest pain Qualifiers: Chest pain type: unspecified Qualified Code(s): R07.9 - Chest pain, unspecified Is this a current diagnosis for this admission?: Yes (3) Hypertension Is this a current diagnosis for this admission?: Yes (4) Seasonal allergies Is this a current diagnosis for this admission?: Yes - Plan Summary Summary: 09/03/2019- Community acquired pneumonia-Rocephin 1 g IV daily, azithromycin 500 mg p.o. daily. Await culture for offending organism. Supportive measures as needed including oxygen. Chest pain-most likely costochondral in nature. Patient does state aggravation with movement and breathing. Percocet 5 mg / 325 mg 1 p.o. every 4 hours as needed. Hypertension-await medication reconciliation and continue medication Seasonal allergies-continue home medications 09/04/2019- Community acquired pneumonia-improved. Patient states breathing is much easier at this time. We will continue Rocephin and azithromycin. Await cultures Chest pain-most likely costochondral in nature. Improved at this time. Continue PRN pain medications. Hypertension-stable improved. Continue to follow Seasonal allergies-continue home medications. Acute renal failure-mild creatinine 1.4. I will hydrate patient overnight with normal saline at 75 mL an hour repeat BMP in a.m. 09/05/2019- Committee acquired pneumonia-stable. Continue Rocephin and azithromycin. Cultures are still pending. Patient does have not improved wheezing in right upper lobe. If patient's creatinine has returned to normal this a.m. I will obtain a CT of her chest with contrast to rule out any other processes that might be causing problems. Chest pain-improved. Continue PRN pain medications Hypertension-stable Seasonal allergies-stable Acute renal failure awaiting a.m. labs will make change plan of care after return. - Time Time Spent with patient: 15-24 minutes - Inpatient Certification Based on my medical assessment, after consideration of the patient's comorbidities, presenting symptoms, or acuity I expect that the services needed warrant INPATIENT care.: Yes I certify that my determination is in accordance with my understanding of Medicare's requirements for reasonable and necessary INPATIENT services [42 CFR 412.3e].: Yes Medical Necessity: Other - IV antibiotics, IV fluids
[2019-09-05] MEDS: ALBUTEROL SULFATE 0.083% NEB 2.5 MG/3 ML AMPUL NEB PRN ×3 (09:36→19:57)
[2019-09-05 09:51] LABS: HEMATOCRIT 29.2 % (36.0-47.0); HEMOGLOBIN 9.9 g/dL (12.0-15.5); MEAN CORPUSCULAR HEMOGLOBIN 32.8 pg (27.0-33.4); MEAN CORPUSCULAR HGB CONC 33.9 g/dL (32.0-36.0); MEAN CORPUSCULAR VOLUME 97 fl (80-97); PLATELET COUNT 126 10^3/uL (150-450); RED BLOOD COUNT 3.01 10^6/uL (3.72-5.28); RED CELL DISTRIBUTION WIDTH 15.3 % (11.5-14.0); WHITE BLOOD COUNT 6.1 10^3/uL (4.0-10.5)
[2019-09-05] MEDS: AZITHROMYCIN 250 MG TABLET PO SCH (10:24)
[2019-09-05] MEDS: METOPROLOL TARTRATE 25 MG TABLET PO SCH ×2 (10:25→21:59)
[2019-09-05] MEDS: FLECAINIDE ACETATE 100 MG TABLET PO SCH ×2 (10:25→22:00)
[2019-09-05] MEDS: CEFTRIAXONE 1 GM/D5W RTU 1 GM/50 ML RTUPB IV SCH (10:26)
[2019-09-05 10:29] LABS: ANION GAP 9 (5-19); BLOOD UREA NITROGEN 19 mg/dL (7-20); CALCIUM 8.5 mg/dL (8.4-10.2); CARBON DIOXIDE 26 mmol/L (22-30); CHLORIDE 102 mmol/L (98-107); GLUCOSE 133 mg/dL (75-110); POTASSIUM 3.8 mmol/L (3.6-5.0)
--- NOTE | 2019-09-05 11:56 | RADIOLOGY REPORT (SQ) ---
EXAM DESCRIPTION: CT CHEST WITH COMPLETED DATE/TIME: 09/05/2019 11:38 am REASON FOR STUDY: pneumonia COMPARISON: None. TECHNIQUE: CT scan of the chest performed using helical scanning technique with dynamic intravenous contrast injection. Images reviewed with lung, soft tissue and bone windows. Reconstructed coronal and sagittal MPR and MIP images reviewed. All images stored on PACS. All CT scanners at this facility use dose modulation, iterative reconstruction, and/or weight based d osing when appropriate to reduce radiation dose to as low as reasonably achievable (ALARA). [facility]: Dose Right [facility]: CareDose [facility]: Dose Right [facility]: Teradose 4D [facility]: [email or web address] CONTRAST TYPE AND DOSE: contrast/concentration: Isovue 350.00 mg/ml; Total Contrast Delivered: 79.0 ml; Total Saline Delivered: 59.0 ml RENAL FUNCTION: BUN 26 creatinine 1.42 RADIATION DOSE: CT Rad equipment meets quality standard of care and radiation dose reduction techniq ues were employed. CTDIvol: 6.1 mGy. DLP: 239 mGy-cm. . LIMITATIONS: None. FINDINGS: LUNGS AND PLEURA: There is patchy opacification in both lower lobes and in the lingula. N o pulmonary mass is seen. HILAR AND MEDIASTINAL STRUCTURES: Multiple relatively small mediastinal nodes. The largest is a masood aortic node measuring 10 mm in short axis. HEART AND VASCULAR STRUCTURES: No aneurysm or dissection. No central pulmonary emboli. No pericardi al effusion. There is coronary atherosclerosis. HARDWARE: None in the chest. UPPER ABDOMEN: No significant findings. Limited exam. THYROID AND OTHER SOFT TISSUES: No masses. No adenopathy. BONES: Scoliosis. OTHER: No other significant finding. IMPRESSION: Bilateral pneumonias. Mediastinal adenopathy. Coronary atherosclerosis. Scoliosis. TECHNICAL DOCUMENTATION: JOB ID: [id number] Quality ID # [id number]: Final reports with documentation of one or more dose reduction techniques (e.g., Au tomated exposure control, adjustment of the mA and/or kV according to patient size, use of iterative reconstruction technique) 2010 [employer]- All Rights Reserved Reading location - IP/workstation name: [email or web address]
[2019-09-05] MEDS: GUAIFENESIN 600 MG TABLET.SA PO SCH ×2 (12:59→21:59)
[2019-09-06] MEDS: ALBUTEROL SULFATE 0.083% NEB 2.5 MG/3 ML AMPUL NEB PRN ×2 (01:15→21:15)
[2019-09-06] MEDS: NYSTATIN 500000 UNIT/5 ML UDCUP PO SCH ×4 (01:31→17:23)
[2019-09-06] MEDS: HEPARIN SOD (PORCINE) 5,000 UNIT/ML 1 ML VIAL SUBCUT SCH ×3 (06:18→22:03)
[2019-09-06 06:24] LABS: HEMATOCRIT 25.9 % (36.0-47.0); HEMOGLOBIN 8.7 g/dL (12.0-15.5); MEAN CORPUSCULAR HEMOGLOBIN 32.5 pg (27.0-33.4); MEAN CORPUSCULAR HGB CONC 33.6 g/dL (32.0-36.0); MEAN CORPUSCULAR VOLUME 97 fl (80-97); PLATELET COUNT 125 10^3/uL (150-450); RED BLOOD COUNT 2.67 10^6/uL (3.72-5.28); RED CELL DISTRIBUTION WIDTH 15.2 % (11.5-14.0); WHITE BLOOD COUNT 5.1 10^3/uL (4.0-10.5)
[2019-09-06 06:56] LABS: ANION GAP 10 (5-19); BLOOD UREA NITROGEN 16 mg/dL (7-20); CALCIUM 8.2 mg/dL (8.4-10.2); CARBON DIOXIDE 23 mmol/L (22-30); CHLORIDE 102 mmol/L (98-107); GLUCOSE 100 mg/dL (75-110); POTASSIUM 4.1 mmol/L (3.6-5.0)
--- NOTE | 2019-09-06 08:38 | PDOC PROGRESS REPORT ---
Subjective Progress Note for:: 09/06/19 Subjective:: 09/04/2019-no complaints this a.m. 09/05/2019-no complaints 09/06/2019-no complaints this a.m. Reason For Visit: COMMUNITY AQUIRED PNEUMONIA Physical Exam Vital Signs: Temp Pulse Resp BP Pulse Ox 99.8 F 75 13 141/70 H 95 09/06/19 00:00 09/06/19 01:17 09/06/19 01:17 09/06/19 00:00 09/06/19 01:17 Intake & Output 09/05/19 09/06/19 09/07/19 06:59 06:59 06:59 Intake Total 2009 2330 Balance 2009 2330 Weight 67.1 kg 68.3 kg General appearance: PRESENT: no acute distress, well-developed, well-nourished Neck exam: ABSENT: carotid bruit, JVD, lymphadenopathy, thyromegaly Respiratory exam: PRESENT: decreased breath sounds, symmetrical, unlabored, wheezes Cardiovascular exam: PRESENT: RRR. ABSENT: diastolic murmur, rubs, systolic murmur Pulses: PRESENT: normal dorsalis pedis pul Vascular exam: PRESENT: normal capillary refill GI/Abdominal exam: PRESENT: normal bowel sounds, soft. ABSENT: distended, guarding, mass, organolmegaly, rebound, tenderness Extremities exam: PRESENT: full ROM. ABSENT: calf tenderness, clubbing, pedal edema Neurological exam: PRESENT: alert, awake, oriented to person, oriented to place, oriented to time, oriented to situation, CN II-XII grossly intact. ABSENT: motor sensory deficit Psychiatric exam: PRESENT: appropriate affect, normal mood. ABSENT: homicidal ideation, suicidal ideation Skin exam: PRESENT: dry, intact, warm. ABSENT: cyanosis, rash Results Laboratory Results: 09/06/19 05:28 09/06/19 05:28 09/05/19 09/05/19 09/06/19 09:08 09:08 05:28 WBC 6.1 RBC 3.01 L Hgb 9.9 L Hct 29.2 L MCV 97 MCH 32.8 MCHC 33.9 RDW 15.3 H Plt Count 126 L Sodium 137.2 135.0 L Potassium 3.8 4.1 Chloride 102 102 Carbon Dioxide 26 23 Anion Gap 9 10 BUN 19 16 Creatinine 1.17 1.09 Est GFR ( Amer) 54 L 58 L Glucose 133 H 100 Calcium 8.5 8.2 L 09/06/19 05:28 WBC 5.1 RBC 2.67 L Hgb 8.7 L Hct 25.9 L MCV 97 MCH 32.5 MCHC 33.6 RDW 15.2 H Plt Count 125 L Sodium Potassium Chloride Carbon Dioxide Anion Gap BUN Creatinine Est GFR ( Amer) Glucose Calcium 09/03/19 09/03/19 05:45 09:21 Troponin I 0.023 0.025 Impressions: Chest X-Ray 09/03/19 05:58 IMPRESSION: Developing bilateral lower lung opacities favored to represent developing pneumonia, consider aspiration. Chest CT 09/05/19 00:00 IMPRESSION: Bilateral pneumonias. Mediastinal adenopathy. Coronary atherosclerosis. Scoliosis. Assessment and Plan - Diagnosis (1) Community acquired pneumonia Is this a current diagnosis for this admission?: Yes (2) Chest pain Qualifiers: Chest pain type: unspecified Qualified Code(s): R07.9 - Chest pain, unspecified Is this a current diagnosis for this admission?: Yes (3) Hypertension Is this a current diagnosis for this admission?: Yes (4) Seasonal allergies Is this a current diagnosis for this admission?: Yes - Plan Summary Summary: 09/03/2019- Community acquired pneumonia-Rocephin 1 g IV daily, azithromycin 500 mg p.o. daily. Await culture for offending organism. Supportive measures as needed including oxygen. Chest pain-most likely costochondral in nature. Patient does state aggravation with movement and breathing. Percocet 5 mg / 325 mg 1 p.o. every 4 hours as needed. Hypertension-await medication reconciliation and continue medication Seasonal allergies-continue home medications 09/04/2019- Community acquired pneumonia-improved. Patient states breathing is much easier at this time. We will continue Rocephin and azithromycin. Await cultures Chest pain-most likely costochondral in nature. Improved at this time. Continue PRN pain medications. Hypertension-stable improved. Continue to follow Seasonal allergies-continue home medications. Acute renal failure-mild creatinine 1.4. I will hydrate patient overnight with normal saline at 75 mL an hour repeat BMP in a.m. 09/05/2019- Committee acquired pneumonia-stable. Continue Rocephin and azithromycin. Cultu res are still pending. Patient does have not improved wheezing in right upper lobe. If patient's creatinine has returned to normal this a.m. I will obtain a CT of her chest with contrast to rule out any other processes that might be causing problems. Incentive spirometry. Chest pain-improved. Continue PRN pain medications Hypertension-stable Seasonal allergies-stable Acute renal failure awaiting a.m. labs will make change plan of care after return. 09/06/2019- Community acquired pneumonia-improved. Continue Rocephin and azithromycin. Cultures are negative at this time. CT of her chest yesterday showed no acute findings other than pneumonia. We will get a 6-minute walk study this morning to determine if patient needs home oxygen as patient is still requiring supplemental oxygen.. Chest pain-stable Hypertension-stable Seasonal allergies-stable Acute renal failure-stable continue to follow - Time Time Spent with patient: 15-24 minutes - Inpatient Certification Based on my medical assessment, after consideration of the patient's comorbidities, presenting symptoms, or acuity I expect that the services needed warrant INPATIENT care.: Yes I certify that my determination is in accordance with my understanding of Medicare's requirements for reasonable and necessary INPATIENT services [42 CFR 412.3e].: Yes Medical Necessity: Need for IV Antibiotics
[2019-09-06] MEDS: METOPROLOL TARTRATE 25 MG TABLET PO SCH ×2 (09:33→22:03)
[2019-09-06] MEDS: AZITHROMYCIN 250 MG TABLET PO SCH (09:33)
[2019-09-06] MEDS: FLECAINIDE ACETATE 100 MG TABLET PO SCH ×2 (09:34→22:03)
[2019-09-06] MEDS: GUAIFENESIN 600 MG TABLET.SA PO SCH ×2 (09:34→22:03)
[2019-09-06] MEDS: CEFTRIAXONE 1 GM/D5W RTU 1 GM/50 ML RTUPB IV SCH (09:34)
[2019-09-06] MEDS ORDERED: FLECAINIDE ACETATE 100 MG TABLET PO SCH (10:00)
[2019-09-06] MEDS ORDERED: METOPROLOL TARTRATE 25 MG TABLET PO SCH (10:00)
[2019-09-06] MEDS: GUAIFENESIN/CODEINE PHOS 100-10 MG/ 5 ML UDC PO PRN ×2 (15:50→21:08)
[2019-09-06] MEDS ORDERED: ASPIRIN 325 MG TABLET PO SCH (18:00)
[2019-09-06] MEDS ORDERED: MONTELUKAST SODIUM 10 MG TABLET PO SCH (18:00)
[2019-09-07] MEDS: NYSTATIN 500000 UNIT/5 ML UDCUP PO SCH ×2 (00:07→05:55)
[2019-09-07] MEDS ORDERED: GUAIFENESIN/CODEINE PHOS 100-10 MG/ 5 ML UDC PO PRN (05:00)
[2019-09-07] MEDS: HEPARIN SOD (PORCINE) 5,000 UNIT/ML 1 ML VIAL SUBCUT SCH (05:55)
--- NOTE | 2019-09-07 08:24 | PDOC DISCHARGE SUMMARY ---
Impression - Admit/DC Date/PCP Admission Date/Primary Care Provider: 09/03/19 07:59 JADEN KITCHEN MD Discharge Date: 09/07/19 - Discharge Diagnosis (1) Community acquired pneumonia Is this a current diagnosis for this admission?: Yes (2) Chest pain Is this a current diagnosis for this admission?: Yes (3) Hypertension Is this a current diagnosis for this admission?: Yes (4) Seasonal allergies Is this a current diagnosis for this admission?: Yes - Assessment Summary: 09/03/2019- Community acquired pneumonia-Rocephin 1 g IV daily, azithromycin 500 mg p.o. daily. Await culture for offending organism. Supportive measures as needed in cluding oxygen. Chest pain-most likely costochondral in nature. Patient does state aggravation with movement and breathing. Percocet 5 mg / 325 mg 1 p.o. every 4 hours as needed. Hypertension-await medication reconciliation and continue medication Seasonal allergies-continue home medications 09/04/2019- Community acquired pneumonia-improved. Patient states breathing is much easier at this time. We will continue Rocephin and azithromycin. Await cultures Chest pain-most likely costochondral in nature. Improved at this time. Continue PRN pain medications. Hypertension-stable improved. Continue to follow Seasonal allergies-continue home medications. Acute renal failure-mild creatinine 1.4. I will hydrate patient overnight with normal saline at 75 mL an hour repeat BMP in a.m. 09/05/2019- Committee acquired pneumonia-stable. Continue Rocephin and azithromycin. Cultures are still pending. Patient does have not improved wheezing in right upper lobe. If patient's creatinine has returned to normal this a.m. I will obtain a CT of her chest with contrast to rule out any other processes that might be causing problems. Incentive spirometry. Chest pain-improved. Continue PRN pain medications Hypertension-stable Seasonal allergies-stable Acute renal failure awaiting a.m. labs will make change plan of care after return. 09/06/2019- Community acquired pneumonia-improved. Continue Rocephin and azithromycin. Cultures are negative at this time. CT of her chest yesterday showed no acute findings other than pneumonia. We will get a 6-minute walk study this morning to determine if patient needs home oxygen as patient is still requiring supplemental oxygen.. Chest pain-stable Hypertension-stable Seasonal allergies-stable Acute renal failure-stable continue to follow - Additional Information Resuscitation Status: Full Code Discharge Diet: As Tolerated Discharge Activity: Activity As Tolerated Referrals: JADEN KITCHEN MD [Primary Care Provider] - Follow up as needed Prescriptions: Albuterol Sulfate [Albuterol Sulfate Hfa] 8.5 gm IH Q4H #1 hfa.aer.ad Cefuroxime Axetil [Ceftin 500 mg Tablet] 1 tab PO BID #20 tablet Benzonatate [Tessalon Perles 100 mg Capsule] 100 mg PO Q8HP PRN #40 capsule PRN Reason: Home Medications: Allopurinol [Zyloprim 100 mg Tablet] 100 mg PO QAM 09/03/19 Aspirin [Aspirin 325 mg Tablet] 325 mg PO QPM 09/03/19 Calcium Carbonate [Calcium] 600 mg PO QPM 09/03/19 Cetirizine HCl [Zyrtec 10 mg Tablet] 10 mg PO QAM 09/03/19 Cyanocobalamin (Vitamin B-12) [Vitamin B-12 1000 mcg Tablet] 1,000 mcg PO QPM 09/03/19 Fiber [Fiber Choice] 1 tab PO QPM 09/03/19 Flecainide Acetate [Tambocor 100 mg Tablet] 100 mg PO Q12 09/03/19 Mesalamine [Apriso ER 0.375 gm Cap.sr] 1.5 gm PO QAM 09/03/19 Metoprolol Tartrate [Lopressor 25 mg Tablet] 25 mg PO Q12 09/03/19 Montelukast Sodium [Singulair 10 mg Tablet] 10 mg PO QPM 09/03/19 Multivitamin [Multiple Vitamins] 1 tab PO QPM 09/03/19 Albuterol Sulfate [Albuterol Sulfate Hfa] 8.5 gm IH Q4H #1 hfa.aer.ad 09/07/19 Benzonatate [Tessalon Perles 100 mg Capsule] 100 mg PO Q8HP PRN #40 capsule 09/07/19 Cefuroxime Axetil [Ceftin 500 mg Tablet] 1 tab PO BID #20 tablet 09/07/19 Guaifenesin [Mucinex Sr 600 mg Tablet.sa] 600 mg PO Q12 tablet.sa 09/07/19 History of Present Illiness History of Present Illness: KELSIE ESTEBAN is a 79 year old female who presents to the ER with complaint of chest pain and cough. Patient states she is been fighting cough for 2 weeks states that it has been progressively worsening. Reports that her primary care practitioner placed her on allergy medication secondary to allergic tendencies toward mold. Patient states left-sided chest pain is sharp in nature especially with movement and cough. She has had no treatment prior to arrival. All activities been aggravating factor. Patient continues to smoke 3 cigarettes a day. Hospital Course Hospital Course: Patient 79-year-old female presented to ER with complaints of chest pain and cough. Patient was found to have a primary diagnosis of community acquired pneumonia was placed on medical surgical floor on Rocephin and azithromycin. Cultures were obtained that have been negative thus far. Patient does have a nonproductive cough. Patient stated left-sided chest pain that was reproducible in nature suggestive of costochondritis. Patient has shown significant improvement at this time to return home. I will send patient on Ceftin 500 mg p.o. twice daily, albuterol HFA 2 puffs every 4 hours while awake, and Tessalon Perles 100 mg p.o. 3 times daily as needed. Patient sustaining her oxygen saturations in the mid 90s off of O2. Patient has been educated to continue incentive spirometry at home. Patient will follow-up with primary care practitioner within 1 week. Patient is in agreement with plan of care. Physical Exam Vital Signs: Temp Pulse Resp BP Pulse Ox 97.3 F 85 17 151/59 H 93 09/06/19 23:12 09/06/19 23:12 09/06/19 23:12 09/06/19 23:12 09/06/19 23:12 Intake & Output 09/06/19 09/07/19 09/08/19 06:59 06:59 06:59 Intake Total 2330 770 Output Total 120 Balance 2330 650 Weight 68.3 kg 68.3 kg General appearance: PRESENT: no acute distress, well-developed, well-nourished Head exam: PRESENT: atraumatic, normocephalic Eye exam: PRESENT: conjunctiva pink, EOMI, PERRLA. ABSENT: scleral icterus Ear exam: PRESENT: normal external ear exam Mouth exam: PRESENT: moist, tongue midline Neck exam: ABSENT: carotid bruit, JVD, lymphadenopathy, thyromegaly Respiratory exam: PRESENT: clear to auscultation lissette, symmetrical, unlabored. ABSENT: rales, rhonchi, wheezes Cardiovascular exam: PRESENT: RRR. ABSENT: diastolic murmur, rubs, systolic murmur Pulses: PRESENT: normal dorsalis pedis pul Vascular exam: PRESENT: normal capillary refill GI/Abdominal exam: PRESENT: normal bowel sounds, soft. ABSENT: distended, guarding, mass, organolmegaly, rebound, tenderness Rectal exam: PRESENT: deferred Extremities exam: PRESENT: full ROM. ABSENT: calf tenderness, clubbing, pedal edema Neurological exam: PRESENT: alert, awake, oriented to person, oriented to place, oriented to time, oriented to situation, CN II-XII grossly intact. ABSENT: motor sensory deficit Psychiatric exam: PRESENT: appropriate affect, normal mood. ABSENT: homicidal ideation, suicidal ideation Skin exam: PRESENT: dry, intact, warm. ABSENT: cyanosis, rash Results Laboratory Results: WBC 5.1 10^3/uL (4.0-10.5) 09/06/19 05:28 RBC 2.67 10^6/uL (3.72-5.28) L 09/06/19 05:28 Hgb 8.7 g/dL (12.0-15.5) L 09/06/19 05:28 Hct 25.9 % (36.0-47.0) L 09/06/19 05:28 MCV 97 fl (80-97) 09/06/19 05:28 MCH 32.5 pg (27.0-33.4) 09/06/19 05:28 MCHC 33.6 g/dL (32.0-36.0) 09/06/19 05:28 RDW 15.2 % (11.5-14.0) H 09/06/19 05:28 Plt Count 125 10^3/uL (150-450) L 09/06/19 05:28 Lymph % (Auto) 13.9 % (13-45) 09/03/19 05:45 Starke % (Auto) 5.8 % (3-13) 09/03/19 05:45 Eos % (Auto) 0.3 % (0-6) 09/03/19 05:45 Baso % (Auto) 1.2 % (0-2) 09/03/19 05:45 Absolute Neuts (auto) 7.6 10^3/uL (1.7-8.2) 09/03/19 05:45 Absolute Lymphs (auto) 1.3 10^3/uL (0.5-4.7) 09/03/19 05:45 Absolute Monos (auto) 0.6 10^3/uL (0.1-1.4) 09/03/19 05:45 Absolute Eos (auto) 0.0 10^3/uL (0.0-0.6) 09/03/19 05:45 Absolute Basos (auto) 0.1 10^3/uL (0.0-0.2) 09/03/19 05:45 Seg Neutrophils % 78.8 % (42-78) H 09/03/19 05:45 Sodium 135.0 mmol/L (137-145) L 09/06/19 05:28 Potassium 4.1 mmol/L (3.6-5.0) 09/06/19 05:28 Chloride 102 mmol/L (98-107) 09/06/19 05:28 Carbon Dioxide 23 mmol/L (22-30) 09/06/19 05:28 Anion Gap 10 (5-19) 09/06/19 05:28 BUN 16 mg/dL (7-20) 09/06/19 05:28 Creatinine 1.09 mg/dL (0.52-1.25) 09/06/19 05:28 Est GFR ( Amer) 58 (>60) L 09/06/19 05:28 Est GFR (MDRD) Non-Af 48 (>60) L 09/06/19 05:28 Glucose 100 mg/dL (75-110) 09/06/19 05:28 Calcium 8.2 mg/dL (8.4-10.2) L 09/06/19 05:28 Phosphorus 4.4 mg/dL (2.5-4.5) 09/04/19 05:19 Magnesium 1.7 mg/dL (1.6-2.3) 09/04/19 05:19 Total Bilirubin 0.8 mg/dL (0.2-1.3) 09/03/19 05:45 Direct Bilirubin 0.1 mg/dL (0.0-0.4) 09/03/19 05:45 Neonat Total Bilirubin Not Reportable 09/03/19 05:45 Neonat Direct Bilirubin Not Reportable 09/03/19 05:45 Neonat Indirect Bili Not Reportable 09/03/19 05:45 AST 28 U/L (14-36) 09/03/19 05:45 ALT 30 U/L (<35) 09/03/19 05:45 Alkaline Phosphatase 84 U/L (38-126) 09/03/19 05:45 Troponin I 0.025 ng/mL 09/03/19 09:21 Total Protein 6.4 g/dL (6.3-8.2) 09/03/19 05:45 Albumin 3.7 g/dL (3.5-5.0) 09/03/19 05:45 09/03/19 09/03/19 05:45 09:21 Troponin I 0.023 0.025 Impressions: Chest X-Ray 09/03/19 05:58 IMPRESSION: Developing bilateral lower lung opacities favored to represent developing pneumonia, consider aspiration. Chest CT 09/05/19 00:00 IMPRESSION: Bilateral pneumonias. Mediastinal adenopathy. Coronary atherosclerosis. Scoliosis. Plan Time Spent: Greater than 30 Minutes Stroke Is this a Stroke Patient?: No Acute Heart Failure - Is this a Heart Failure Patient?: No
[2019-09-07 08:48] VITALS: BP 141/70
[2019-09-07] MEDS: METOPROLOL TARTRATE 25 MG TABLET PO SCH (09:23)
[2019-09-07] MEDS: FLECAINIDE ACETATE 100 MG TABLET PO SCH (09:24)
[2019-09-07] MEDS: AZITHROMYCIN 250 MG TABLET PO SCH (09:24)
[2019-09-07] MEDS: CEFTRIAXONE 1 GM/D5W RTU 1 GM/50 ML RTUPB IV SCH (09:24)
[2019-09-07] MEDS: GUAIFENESIN 600 MG TABLET.SA PO SCH (09:24)
== END 2019-09-07 10:40 | disposition home or self-care (01) | DRG 194 ==
LOC: ER 05:28 → EH 07:59 → 5 11:22
PROVIDERS: ADMIT Internal Medicine; ATTEND Internal Medicine
PROC: 5A09357 Assistance with Respiratory Ventilation, Less than 24 Consecutive Hours, Continuous Positive Airway Pressure (ICD-10-PCS; principal; 2019-09-04)
DX: J18.9 Pneumonia, unspecified organism (principal); N17.9 Acute kidney failure, unspecified; I10 Essential (primary) hypertension; M94.0 Chondrocostal junction syndrome [Tietze]; J30.2 Other seasonal allergic rhinitis; F17.210 Nicotine dependence, cigarettes, uncomplicated; Z90.49 Acquired absence of other specified parts of digestive tract; Z82.49 Family history of ischemic heart disease and other diseases of the circulatory system; Z79.82 Long term (current) use of aspirin
CPT/HCPCS: 36415; 71045; 71260; 80048; 80053; 83735; 84100; 84484; 85025; 85027; 87040; 93005; 93010; 94640; 94660; 94799; 96365; 96375; 99285; J0696; J1644; J1956; J2405; J3490; J7030

== ENCOUNTER → 2020-03-19 | Outpatient (CLI) | payer MEDICARE, BC ==
--- NOTE | 2020-03-19 10:24 | RADIOLOGY REPORT (SQ) ---
EXAM DESCRIPTION: CHEST 2 VIEWS IMAGES COMPLETED DATE/TIME: 03/19/2020 10:15 am REASON FOR STUDY: SHORTNESS OF BREATH (R06.02) COMPARISON: 09/03/2019 EXAM PARAMETERS: NUMBER OF VIEWS: two views TECHNIQUE: Digital Frontal and Lateral radiographic views of the chest acquired. RADIATION DOSE: NA LIMITATIONS: none FINDINGS: LUNGS AND PLEURA: Hyperinflation and flattening of the hemidiaphragm. No focal airspace d isease, pleural effusion or pneumothorax. MEDIASTINUM AND HILAR STRUCTURES: No masses or contour abnormalities. HEART AND VASCULAR STRUCTURES: Enlarged, stable. Vascular calcifications. BONES: No acute findings. Serpiginous thoracic curvature. HARDWARE: Loop recorder overlies left chest. OTHER: No other significant finding. IMPRESSION: No evidence of acute cardiopulmonary process. TECHNICAL DOCUMENTATION: JOB ID: [id number] 2010 [employer]- All Rights Reserved Reading location - IP/workstation name: [email or web address]
--- NOTE | 2020-03-19 14:10 | RADIOLOGY REPORT (SQ) ---
EXAM DESCRIPTION: NM LUNG PERFUSION SCAN IMAGES COMPLETED DATE/TIME: 03/19/2020 11:26 am REASON FOR STUDY: SHORTNESS OF BREATH (R06.02) R06.02 SHORTNESS OF BREATH COMPARISON: Same day radiograph, CT 09/05/2019 RADIONUCLIDE AND DOSE: 5.33 millicuries TC-99m MAA The route of agent administration: Intravenous TECHNIQUE: Eight views of the lungs acquired following injection of MAA. LIMITATIONS: None. FINDINGS: PERFUSION: Single area of decreased uptake within the right mid lung. No ventilation berkley ges available for comparison. Otherwise homogeneous activity throughout. OTHER: No other significant finding. IMPRESSION: Single peripheral area of decreased uptake within the right mid lung without correspondi ng radiographic abnormality. No ventilation images available for correlation. (Intermediate probabi lity for pulmonary embolus). TECHNICAL DOCUMENTATION: JOB ID: [id number] 2010 [employer]- All Rights Reserved Reading location - IP/workstation name: [email or web address]
== END ==
LOC: RAD 09:40
PROVIDERS: ATTEND Physician Assistant
DX: R06.02 Shortness of breath (principal)
CPT/HCPCS: 71046; 78580; A9540; Q9969

== ENCOUNTER → 2020-05-20 | Outpatient (CLI) | payer MEDICARE, BC ==
--- NOTE | 2020-05-20 13:11 | RADIOLOGY REPORT (SQ) ---
EXAM DESCRIPTION: CT CHEST WITHOUT IMAGES COMPLETED DATE/TIME: 05/20/2020 9:07 am REASON FOR STUDY: R06.02 SHORTNESS OF BREATH R06.02 SHORTNESS OF BREATH COMPARISON: None. TECHNIQUE: CT scan performed of the chest without intravenous contrast. Images reviewed with lung, soft tissue and bone windows. Reconstructed coronal and sagittal MPR images reviewed. All images st ored on PACS. All CT scanners at this facility use dose modulation, iterative reconstruction, and/or weight based d osing when appropriate to reduce radiation dose to as low as reasonably achievable (ALARA). [facility]: Dose Right [facility]: CareDose [facility]: Dose Right [facility]: Teradose 4D [facility]: Heckyl RADIATION DOSE: CT Rad equipment meets quality standard of care and radiation dose reduction techniq ues were employed. CTDIvol: 5.6 mGy. DLP: 241 mGy-cm. mGy. LIMITATIONS: No technical limitations. FINDINGS: LUNGS AND PLEURA: No masses, infiltrates, or pneumothorax. No pleural effusions or pleura l calcifications. HILAR AND MEDIASTINAL STRUCTURES: No identified masses or abnormal nodes. No obvious aneurysm. HEART AND VASCULAR STRUCTURES: No aneurysm. No pericardial effusion. Coronary artery calcifications are present. UPPER ABDOMEN: No significant findings. Limited exam. THYROID AND OTHER SOFT TISSUES: Low-density lesion in the left lobe of the thyroid gland. BONES: No significant finding. HARDWARE: None in the chest. OTHER: No other significant findings. IMPRESSION: No acute finding in the chest. Coronary artery calcifications are present. TECHNICAL DOCUMENTATION: JOB ID: [id number] Quality ID # [id number]: Final reports with documentation of one or more dose reduction techniques (e.g., Au tomated exposure control, adjustment of the mA and/or kV according to patient size, use of iterative reconstruction technique) 2010 [employer]- All Rights Reserved Reading location - IP/workstation name: [email or web address]
== END ==
LOC: RAD 08:52
PROVIDERS: ATTEND Physician Assistant
DX: R06.02 Shortness of breath (principal); I25.10 Atherosclerotic heart disease of native coronary artery without angina pectoris
CPT/HCPCS: 71250

== ENCOUNTER → 2020-12-13 | Outpatient (CLI) | payer MEDICARE, BC ==
--- NOTE | 2020-12-13 11:52 | WOMENS IMAGING REPORT ---
EXAM DESCRIPTION: 3D SCREENING MAMMO BILAT IMAGES COMPLETED DATE/TIME: 12/13/2020 11:18 am REASON FOR STUDY: ROUTINE SCREENING MAMMOGRAM Z12.31 Z12.31 ENCNTR SCREEN MAMMOGRAM FOR MALIGNANT N EOPLASM OF MARY Z78.0 ASYMPTOMATIC MENOPAUSAL STATE COMPARISON: Multiple since 2010 EXAM PARAMETERS: Views: Standard craniocaudal and mediolateral oblique views of each breast recorded using digital acquisition and breast tomosynthesis. Read with the assistance of CAD. .[facility] - [employer] Scheduler Version 9.2 LIMITATIONS: Pacemaker artifact over the left breast far upper outer quadrant MLO view only FINDINGS: No suspicious masses, suspicious calcifications or architectural distortion. No areas of c oncern. IMPRESSION: NEGATIVE MAMMOGRAM. BIRADS 1. BREAST DENSITY: b. There are scattered areas of fibroglandular density. BIRAD: ASSESSMENT: 1 NEGATIVE RECOMMENDATION: ROUTINE SCREENING COMMENT: The patient has been notified of the results by letter per MQSA requirements. Additional no tification policies are in place for contacting patient with suspicious or incomplete findings. Quality ID #225: The [employer] recommends an annual screening mammogram for women aged 40 years or over. This facility utilizes a reminder system to ensure that all patients receive reminder letters, and/or direct phone calls for appointments. This includes reminders for routine scr eening mammograms, diagnostic mammograms, or other Breast Imaging Interventions when appropriate. Th is patient will be placed in the appropriate reminder system. TECHNICAL DOCUMENTATION: FINDING NUMBER: (1) ASSESSMENT: (1) JOB ID: [id number] 2010 [employer]- All Rights Reserved Reading location - IP/workstation name: [email or web address]
--- NOTE | 2020-12-13 12:11 | WOMENS IMAGING REPORT ---
EXAM DESCRIPTION: BONE DENSITY HIP/SPINE IMAGES COMPLETED DATE/TIME: 12/13/2020 11:09 am REASON FOR STUDY: Z78.0 Z12.31 ENCNTR SCREEN MAMMOGRAM FOR MALIGNANT NEOPLASM OF MARY Z78.0 ASYMPTO MATIC MENOPAUSAL STATE COMPARISON: None. TECHNIQUE: Dual-Energy X-ray Absorptiometry (DEXA) of the AP Spine and Hip. LIMITATIONS: None. FINDINGS: LUMBAR SPINE: The bone mineral density (BMD) measured from L1-L4 in the AP projection correlates with a T-score of -2.5, which is osteoporosis as defined by the World Health Organization. BMD Change vs Baseline: N/A HIP: The bone mineral density (BMD) measured in the left hip correlates with a T-score of -1.5 in the femo ral neck, which is osteopenia as defined by the World Health Organization. BMD Change vs Baseline: N/A 10 year Fracture Risk Assessment: Major Osteoporotic Fracture: Not available. Hip Fracture: Not available. IMPRESSION: 1. LUMBAR SPINE WHO CLASSIFICATION: OSTEOPOROSIS. 2. HIP WHO CLASSIFICATION: OSTEOPENIA. OVERALL ASSESSMENT: WHO CLASSIFICATION: OSTEOPOROSIS. COMMENT: The World Health Organization defines low BMD as follows: T-score: Normal: At or above -1.0 Osteopenia: Between -1.0 and -2.5 Osteoporosis: At or below -2.5 without fractures Established osteoporosis: At or below -2.5 with fractures In general, you may wish to consider: Diagnosis Treatment Follow-up DEXA Normal BMD Prevention 2-3 years Osteopenia Prevention/Therapy 1-2 years Osteoporosis Therapy Yearly TECHNICAL DOCUMENTATION: JOB ID: [id number] 2010 [employer]- All Rights Reserved Reading location - IP/workstation name: [email or web address]
== END ==
LOC: WI 14:12
PROVIDERS: ATTEND Physician Assistant
DX: Z12.31 Encounter for screening mammogram for malignant neoplasm of breast (principal); Z78.0 Asymptomatic menopausal state; M81.0 Age-related osteoporosis without current pathological fracture
CPT/HCPCS: 77063; 77067; 77080